=== PATIENT | female | born 1935 | race Caucasian/White ===

== ENCOUNTER → 2018-08-22 09:00 | Outpatient (CLI) | payer MEDICARE, BC ==
[2014-09-28 14:30] VITALS: BMI 34.9
[~2018-08-22 09:00] MED LIST: BAYER CHEWABLE81 MG PO; BIOTIN5 MG PO; CALCI-CHEW1 TAB.CHEW; DIFLUCAN100 MG PO; EYE VITAMIN; MOBIC7.5 MG PO; NORCO 7.5/325 T1 TA1 PO; PRILOSEC20 MG PO; SORINE80 MG PO; VALIUM5 MG; ZESTORETIC 20/21 TAB PO; ZOCOR20 MG PO
== END | disposition home or self-care (01) ==
LOC: D.HCCARDIO 09:00
PROVIDERS: ATTEND Internal Medicine Cardiovascular Disease
DX: I20.9 Angina pectoris, unspecified (principal)